=== PATIENT | male | born 1960 | race Caucasian/White ===

== ENCOUNTER 2016-12-10 15:07 | Emergency (ER) | payer OTHER ==
[2016-12-10] MEDS ORDERED: Sodium Chloride 0.9% 10 ML Syringe FLUSH PRN (15:24)
--- NOTE | 2016-12-10 16:25 | EDM.PDOC ---
ED HPI GENERAL MEDICAL PROBLEM - General Chief Complaint: Chest Pain Stated Complaint: CHEST PAIN Time Seen by Provider: 12/10/16 15:19 Source of Information: Reports: Patient History Limitations: Reports: No Limitations - History of Present Illness INITIAL COMMENTS - FREE TEXT/NARRATIVE: The patient presents with right sided chest pain. This started a few days ago. It radiates up into her right shoulder at times. The pain is made worse by movement and when exhaling. 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 She has no fever, chills, cough or congestion. She has no shortness of breath. She notices it more when she exhales. She was nauseated yesterday. She has no coronary artery disease. Onset: Gradual Duration: Day(s): (2) Location: Reports: Chest Quality: Reports: Sharp Severity: Moderate Improves with: Reports: Immobilization Worsens with: Reports: Breathing Associated Symptoms: Reports: Chest Pain. Denies: Cough, Fever/Chills, Headaches, Nausea/Vomiting, Shortness of Breath Treatments ELECTRICAL MECHANIC: Reports: Other (see below) Other Treatments ELECTRICAL MECHANIC: none Right Chest Pain Score (Numeric/FACES): 5 - Related Data Allergies Allergy/AdvReac Type Severity Reaction Status Date / Time No Known Allergies Allergy Verified 12/10/16 15:20 Past Medical History Cardiovascular History: Reports: High Cholesterol, Hypertension Respiratory History: Reports: Pneumonia, Recurrent Gastrointestinal History: Reports: GERD Genitourinary History: Reports: Other (See Below) Other Genitourinary History: has left kidney; born with out right kidney Musculoskeletal History: Reports: Arthritis, Back Pain, Chronic, Other (See Below) Other Musculoskeletal History: bursitis to hips Psychiatric History: Reports: Anxiety, Depression Endocrine/Metabolic History: Reports: Diabetes, Type II - Past Surgical History Other Cardiovascular Surgeries/Procedures: open heart surgery 2 different time as a young child due to congential issues. Social & Family History - Tobacco Use Smoking Status *Q: Never Smoker - Caffeine Use Caffeine Use: Reports: Coffee, Soda - Recreational Drug Use Recreational Drug Use: No ED ROS GENERAL - Review of Systems Review Of Systems: See Below Constitutional: Reports: No Symptoms HEENT: Reports: No Symptoms Respiratory: Reports: No Symptoms Cardiovascular: Reports: Chest Pain Endocrine: Reports: No Symptoms GI/Abdominal: Reports: No Symptoms : Reports: No Symptoms Musculoskeletal: Reports: No Symptoms ED EXAM, GENERAL - Physical Exam Exam: See Below Exam Limited By: No Limitations General Appearance: Alert, No Apparent Distress Ears: Normal External Exam Nose: Normal Inspection Head: Atraumatic, Normocephalic Neck: Normal Inspection Respiratory/Chest: No Respiratory Distress, Lungs Clear, Normal Breath Sounds Cardiovascular: Regular Rate, Rhythm, No Edema, No Murmur GI/Abdominal: Soft, Non-Tender, No Organomegaly, No Mass Back Exam: Normal Inspection Extremities: Normal Inspection Neurological: Alert, Oriented, No Motor/Sensory Deficits EKG INTERPRETATION EKG Date: 12/10/16 Time: 15:22 Rhythm: NSR Rate (Beats/Min): 82 [place]: Normal P-Wave: Present QRS: Normal ST-T: Normal QT: Normal Course - Vital Signs Last Recorded V/S: Last Vital Signs Temp 98.1 F 12/10/16 15:16 Pulse 93 12/10/16 15:16 Resp 23 H 12/10/16 15:16 BP 162/71 H 12/10/16 15:16 Pulse Ox 97 12/10/16 15:16 - Orders/Labs/Meds Orders: Active Orders 24 hr Category Date Time Status Cardiac Monitoring [RC] . DIRECTED Care 12/10/16 15:24 Active EKG Documentation Completion [RC] ASDIRECTED Care 12/10/16 15:15 Active Peripheral IV Care [RC] . DIRECTED Care 12/10/16 15:25 Active Chest 1V Frontal [CR] Stat Exams 12/10/16 15:25 Taken Sodium Chloride 0.9% [Saline Flush] Med 12/10/16 15:24 Active 10 ml FLUSH ASDIRECTED PRN Peripheral IV Insertion Adult [OM.PC] Stat Oth 12/10/16 15:24 Ordered EKG 12 Lead [EK] Stat Ther 12/10/16 15:15 Ordered Medication Orders Sodium Chloride (Saline Flush) 10 ml FLUSH ASDIRECTED PRN PRN Reason: Keep Vein Open Last Admin: 12/10/16 15:31 Dose: 10 ml Labs: Laboratory Tests 12/10/16 12/10/16 Range/Units 15:25 15:25 WBC 8.86 (4.23-9.07) K/mm3 RBC 4.79 (4.63-6.08) M/mm3 Hgb 14.4 (13.7-17.5) gm/L Hct 41.9 (40.1-51.0) % MCV 87.5 (79.0-92.2) fl MCH 30.1 (25.7-32.2) pg MCHC 34.4 (32.2-35.5) g/dl RDW Std Deviation 41.4 (35.1-43.9) fL Plt Count 287 (163-337) K/mm3 MPV 9.9 (9.4-12.3) fl Neut % (Auto) 56.4 (34.0-67.9) % Lymph % (Auto) 32.7 (21.8-53.1) % [place] % (Auto) 8.5 (5.3-12.2) % Eos % (Auto) 1.6 (0.8-7.0) Baso % (Auto) 0.6 (0.1-1.2) % Neut # (Auto) 5.00 (1.78-5.38) K/mm3 Lymph # (Auto) 2.90 (1.32-3.57) K/mm3 [place] # (Auto) 0.75 (0.30-0.82) K/mm3 Eos # (Auto) 0.14 (0.04-0.54) K/mm3 Baso # (Auto) 0.05 (0.01-0.08) K/mm3 Sodium 142 (136-145) mEq/L Potassium 4.1 (3.5-5.1) mEq/L Chloride 103 (98-107) mEq/L Carbon Dioxide 27 (21-32) mEq/L Anion Gap 16.1 H (5-15) BUN 20 H (7-18) mg/dL Creatinine 0.9 (0.7-1.3) mg/dL Est Cr Clr Drug Dosing 66.36 mL/min Estimated GFR (MDRD) > 60 (>60) mL/min BUN/Creatinine Ratio 22.2 H (14-18) Glucose 138 H (74-106) mg/dL Calcium 10.0 (8.5-10.1) mg/dL Total Bilirubin 0.3 (0.2-1.0) mg/dL AST 31 (15-37) U/L ALT 54 (16-63) U/L Alkaline Phosphatase 70 (46-116) U/L Troponin I < 0.017 (0.00-0.056) ng/mL Total Protein 8.1 (6.4-8.2) g/dl Albumin 4.3 (3.4-5.0) g/dl Globulin 3.8 gm/dL Albumin/Globulin Ratio 1.1 (1-2) Meds: Medications Generic Name Dose Route Start Last Admin Trade Name Freq PRN Reason Stop Dose Admin Sodium Chloride 10 ml 12/10/16 15:24 12/10/16 15:31 Saline Flush FLUSH 10 ml ASDIRECTED PRN Administration Keep Vein Open - Re-Assessments/Exams Free Text/Narrative Re-Assessment/Exam: 12/10/16 16:26 I ordered an EKG, CXR, and labs. She did not want anything for pain at this time. She says she has had flair up of connective tissue pain before. Her EKG shows a NSR with no acute changes. Her CXR looks good. He CBC and CMP look good. Her troponin is negative. This appears to be costochondritis. I will discharge her home. Departure - Departure Time of Disposition: 16:30 Disposition: Home, Self-Care 01 Condition: Good Clinical Impression: Costochondritis Referrals: Kristine Goldsmith DO [Primary Care Provider] - 1 Week Additional Instructions: Take some advil or aleve as needed for pain. Follow up with your doctor next week. Please return if you are worse. - My Orders Last 24 Hours: My Active Orders 12/10/16 15:15 EKG Documentation Completion [RC] ASDIRECTED EKG 12 Lead [EK] Stat 12/10/16 15:24 Cardiac Monitoring [RC] . DIRECTED Sodium Chloride 0.9% [Saline Flush] 10 ml FLUSH ASDIRECTED PRN Peripheral IV Insertion Adult [OM.PC] Stat 12/10/16 15:25 Peripheral IV Care [RC] . DIRECTED Chest 1V Frontal [CR] Stat - Assessment/Plan Last 24 Hours: My Active Orders 12/10/16 15:15 EKG Documentation Completion [RC] ASDIRECTED EKG 12 Lead [EK] Stat 12/10/16 15:24 Cardiac Monitoring [RC] . DIRECTED Sodium Chloride 0.9% [Saline Flush] 10 ml FLUSH ASDIRECTED PRN Peripheral IV Insertion Adult [OM.PC] Stat 12/10/16 15:25 Peripheral IV Care [RC] . DIRECTED Chest 1V Frontal [CR] Stat
--- NOTE | 2016-12-12 07:39 | CR ---
Chest: Portable view of the chest was obtained. Comparison: No prior chest x-ray. Heart size and mediastinum are within normal limits. Lungs are clear. Slight degenerative spurring is noted within the spine with minimal scoliosis. Impression: 1. Nothing acute is seen on portable chest x-ray. Diagnostic code #2
== END 2016-12-10 16:40 | disposition home or self-care (01) ==
LOC: EDSEX 15:07 → JD.ED 15:07
DX: M94.0 Chondrocostal junction syndrome [Tietze] (principal); E11.9 Type 2 diabetes mellitus without complications; I10 Essential (primary) hypertension
CPT/HCPCS: 36415; 71010; 80053; 84484; 85025; 93005; 99285; J7050; 93010; 99284

== ENCOUNTER 2017-06-14 11:22 | Emergency (ER) | payer OTHER ==
--- NOTE | 2017-06-14 13:27 | EDM.PDOC ---
ED HPI GENERAL MEDICAL PROBLEM - General Chief Complaint: Chest Pain Stated Complaint: PULLED MUSCLE IN CHEST Time Seen by Provider: 06/14/17 12:01 Source of Information: Reports: Patient, RN Notes Reviewed - History of Present Illness INITIAL COMMENTS - FREE TEXT/NARRATIVE: 56 year old female with L chest pain for about 1 week, achy pain L ant chest worse with certain types of motion, occasionally worse with deep breath. Present most of the time. No cough, fever, chills or dyspnea. No known injury other than lifting grandkids. 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 Hx Htn, type 2 diabetes. Does not smoke. Chest Pain Score (Numeric/FACES): 5 - Related Data Allergies Allergy/AdvReac Type Severity Reaction Status Date / Time ondansetron [From Zofran] Allergy Vomiting Verified 06/14/17 11:32 Home Meds: Home Meds Lisinopril 20 mg PO DAILY 06/14/17 [History] Multivitamin [Multivitamins] 1 tab PO DAILY 06/14/17 [History] Pantoprazole Sodium [Protonix] 20 mg PO DAILY 06/14/17 [History] SitaGLIPtin [Januvia] 25 mg PO DAILY 06/14/17 [History] atorvaSTATin [Lipitor] 10 mg PO DAILY 06/14/17 [History] Past Medical History Cardiovascular History: Reports: High Cholesterol, Hypertension Respiratory History: Reports: Pneumonia, Recurrent Gastrointestinal History: Reports: GERD Genitourinary History: Reports: Other (See Below) Other Genitourinary History: has left kidney; born with out right kidney Musculoskeletal History: Reports: Arthritis, Back Pain, Chronic, Other (See Below) Other Musculoskeletal History: bursitis to hips Psychiatric History: Reports: Anxiety, Depression Endocrine/Metabolic History: Reports: Diabetes, Type II - Past Surgical History Other Cardiovascular Surgeries/Procedures: open heart surgery 2 different time as a young child due to congential issues. Social & Family History - Tobacco Use Smoking Status *Q: Never Smoker - Caffeine Use Caffeine Use: Reports: Coffee - Recreational Drug Use Recreational Drug Use: No ED ROS GENERAL - Review of Systems Review Of Systems: See Below Constitutional: Denies: Fever, Chills, Diaphoresis HEENT: Reports: No Symptoms Respiratory: Denies: Shortness of Breath, Wheezing, Cough Cardiovascular: Reports: Chest Pain GI/Abdominal: Denies: Abdominal Pain, Nausea, Vomiting Musculoskeletal: Denies: Neck Pain, Shoulder Pain, Arm Pain, Back Pain Skin: Reports: No Symptoms Neurological: Reports: No Symptoms ED EXAM, GENERAL - Physical Exam Exam: See Below General Appearance: Alert, No Apparent Distress Throat/Mouth: Normal Inspection, Normal Oropharynx Head: Atraumatic. No: Facial Swelling Neck: Supple, Full Range of Motion Respiratory/Chest: No Respiratory Distress, Lungs Clear, Normal Breath Sounds Cardiovascular: Regular Rate, Rhythm GI/Abdominal: Soft, Non-Tender Back Exam: No: CVA Tenderness (L), CVA Tenderness (R) Extremities: Normal Inspection, Normal Range of Motion. No: Pedal Edema, Leg Pain Neurological: Alert, Oriented, No Motor/Sensory Deficits Skin Exam: Warm, Dry, Normal Color EKG INTERPRETATION EKG Date: 06/14/17 Rhythm: NSR [place]: Normal P-Wave: Present QRS: Normal ST-T: Normal Course - Vital Signs Last Recorded V/S: Last Vital Signs Temp 98.2 F 06/14/17 11:28 Pulse 63 06/14/17 11:28 Resp 16 06/14/17 11:28 BP 179/74 H 06/14/17 11:28 Pulse Ox 100 06/14/17 11:28 - Orders/Labs/Meds Orders: Active Orders 24 hr Category Date Time Status Chest 1V Frontal [CR] Stat Exams 06/14/17 12:12 Taken Labs: Laboratory Tests 06/14/17 06/14/17 Range/Units 13:25 13:25 WBC 6.98 (3.98-10.04) K/mm3 RBC 4.62 (3.98-5.22) M/mm3 Hgb 13.9 (11.2-15.7) gm/L Hct 40.5 (34.1-44.9) % MCV 87.7 (79.4-94.8) fl MCH 30.1 (25.6-32.2) pg MCHC 34.3 (32.2-35.5) g/dl RDW Std Deviation 40.7 (36.4-46.3) fL Plt Count 251 (182-369) K/mm3 MPV 10.4 (9.4-12.3) fl Neut % (Auto) 61.1 (34.0-71.1) % Lymph % (Auto) 29.7 (19.3-51.7) % [place] % (Auto) 7.4 (4.7-12.5) % Eos % (Auto) 1.1 (0.7-5.8) Baso % (Auto) 0.6 (0.1-1.2) % Neut # (Auto) 4.26 (1.56-6.13) K/mm3 Lymph # (Auto) 2.07 (1.18-3.74) K/mm3 [place] # (Auto) 0.52 H (0.24-0.36) K/mm3 Eos # (Auto) 0.08 (0.04-0.36) K/mm3 Baso # (Auto) 0.04 (0.01-0.08) K/mm3 Troponin I < 0.017 (0.00-0.056) ng/mL - Re-Assessments/Exams Free Text/Narrative Re-Assessment/Exam: 06/14/17 15:35 EKG, CXR, trop, CBC all normal. Sinus rythm, no ectopy. Departure - Departure Time of Disposition: 14:53 Disposition: Home, Self-Care 01 Condition: Fair Clinical Impression: Atypical chest pain, Chest wall pain Instructions: Chest Wall Pain, [id number] Referrals: Karen Jarrell MD [Primary Care Provider] - Forms: ED Department Discharge Additional Instructions: advil 600 mg 3 times daily for 2 days and than 400 mg 2 to 3 times daily until pain is gone, follow up clinic if not much better within 3 to 4 days as expected. Return to ED as needed if symptoms worsening in any way. - My Orders Last 24 Hours: My Active Orders 06/14/17 12:12 Chest 1V Frontal [CR] Stat - Assessment/Plan Last 24 Hours: My Active Orders 06/14/17 12:12 Chest 1V Frontal [CR] Stat
--- NOTE | 2017-06-15 10:20 | CR ---
Chest: Frontal view of the chest was obtained. Comparison: Prior chest x-ray of 12/10/16. Heart size at the upper limits of normal. Upper mediastinum is normal. Lungs are clear with no acute parenchymal densities. Bony structures are grossly intact. Impression: 1. Nothing acute is seen on one-view chest x-ray. Diagnostic code #1
== END 2017-06-14 15:00 | disposition home or self-care (01) ==
LOC: JD.ED 11:22
DX: R07.89 Other chest pain (principal); E11.9 Type 2 diabetes mellitus without complications; K21.9 Gastro-esophageal reflux disease without esophagitis; Z79.899 Other long term (current) drug therapy; Z88.8 Allergy status to other drugs, medicaments and biological substances
CPT/HCPCS: 36415; 71045; 71045-26; 84484; 85025; 93010; 99284-25; 99285

== ENCOUNTER 2017-07-17 22:25 | Emergency (ER) | payer OTHER ==
[2017-07-17] MEDS ORDERED: Sodium Chloride 0.9% 10 ML Syringe FLUSH PRN (22:45)
[2017-07-17] MEDS ORDERED: Ketorolac 30 MG/ML SDV IVPUSH ONE (22:47)
[2017-07-17] MEDS ORDERED: HYDROmorphone 0.5 MG/0.5 ML SYRINGE IVPUSH ONE (22:47)
--- NOTE | 2017-07-17 22:54 | EDM.PDOC ---
ED HPI GENERAL MEDICAL PROBLEM - General Chief Complaint: Chest Pain Stated Complaint: poss injury to chest Time Seen by Provider: 07/17/17 22:33 Source of Information: Reports: Patient History Limitations: Reports: No Limitations - History of Present Illness INITIAL COMMENTS - FREE TEXT/NARRATIVE: The patient presents with left sided chest pain. She says this has been going on for a few months. She was seen here in June and she got a little better after that. She just got back from camping and was putting things away and she developed severe left chest pain with movement. She feels a little short of breath with it but mostly because she it hurts to take a deep breath. She has a history of coarctation of the aorta. She had surgery twice as a child. She has no fever, chills, cough, congestion, runny nose, abdominal pain, nausea or vomiting. She has no history of coronary artery disease. She does not smoke. She has no history of DVT or PE. Onset: Gradual Duration: Week(s): Location: Reports: Chest Quality: Reports: Sharp Severity: Severe Improves with: Reports: Immobilization Worsens with: Reports: Movement Context: Reports: Activity (She was putting supplies away from camping and that made it worse tonight) Associated Symptoms: Reports: Chest Pain, Shortness of Breath. Denies: Cough, Fever/Chills, Headaches, Nausea/Vomiting Left Chest Pain Score (Numeric/FACES): 10 - Related Data Allergies Allergy/AdvReac Type Severity Reaction Status Date / Time ondansetron [From Zofran] Allergy Vomiting Verified 07/17/17 22:33 Home Meds: Home Meds Lisinopril 20 mg PO DAILY 06/14/17 [History] Multivitamin [Multivitamins] 1 tab PO DAILY 06/14/17 [History] Pantoprazole Sodium [Protonix] 20 mg PO DAILY 06/14/17 [History] SitaGLIPtin [Januvia] 25 mg PO DAILY 06/14/17 [History] atorvaSTATin [Lipitor] 10 mg PO DAILY 06/14/17 [History] Past Medical History Cardiovascular History: Reports: High Cholesterol, Hypertension Respiratory History: Reports: Pneumonia, Recurrent Gastrointestinal History: Reports: GERD Genitourinary History: Reports: Other (See Below) Other Genitourinary History: has left kidney; born with out right kidney Musculoskeletal History: Reports: Arthritis, Back Pain, Chronic, Other (See Below) Other Musculoskeletal History: bursitis to hips Psychiatric History: Reports: Anxiety, Depression Endocrine/Metabolic History: Reports: Diabetes, Type II - Past Surgical History Other Cardiovascular Surgeries/Procedures: open heart surgery 2 different time as a young child due to congential issues. Social & Family History - Tobacco Use Smoking Status *Q: Never Smoker - Caffeine Use Caffeine Use: Reports: Coffee - Recreational Drug Use Recreational Drug Use: No ED ROS GENERAL - Review of Systems Review Of Systems: See Below Constitutional: Reports: No Symptoms HEENT: Reports: No Symptoms Respiratory: Reports: Shortness of Breath Cardiovascular: Reports: Chest Pain Endocrine: Reports: No Symptoms GI/Abdominal: Reports: No Symptoms : Reports: No Symptoms Musculoskeletal: Reports: No Symptoms ED EXAM, GENERAL - Physical Exam Exam: See Below Exam Limited By: No Limitations General Appearance: Alert, No Apparent Distress Ears: Normal External Exam Nose: Normal Inspection Head: Atraumatic, Normocephalic Neck: Normal Inspection Respiratory/Chest: No Respiratory Distress, Lungs Clear, Normal Breath Sounds Cardiovascular: Regular Rate, Rhythm, No Edema, No Murmur, Other (Pain upon palpation and with movement to the left chest) GI/Abdominal: Soft, Non-Tender, No Organomegaly, No Mass Back Exam: Normal Inspection Extremities: Normal Inspection Neurological: Alert, Oriented, No Motor/Sensory Deficits EKG INTERPRETATION EKG Date: 07/17/17 Time: 10:40 Rhythm: NSR Rate (Beats/Min): 72 [place]: Normal P-Wave: Present QRS: Normal ST-T: Normal QT: Normal Course - Vital Signs Last Recorded V/S: Last Vital Signs Temp 98.0 F 07/17/17 22:34 Pulse 81 07/17/17 22:34 Resp 17 07/17/17 22:34 BP 191/89 H 07/17/17 22:34 Pulse Ox 97 07/17/17 22:34 - Orders/Labs/Meds Orders: Active Orders 24 hr Category Date Time Status Cardiac Monitoring [RC] . DIRECTED Care 07/17/17 22:45 Active EKG Documentation Completion [RC] STAT Care 07/17/17 22:46 Active Peripheral IV Care [RC] . DIRECTED Care 07/17/17 22:46 Active Ang Chest [CT] Stat Exams 07/17/17 22:46 Taken Sodium Chloride 0.9% [Saline Flush] Med 07/17/17 22:45 Active 10 ml FLUSH ASDIRECTED PRN Peripheral IV Insertion Adult [OM.PC] Stat Oth 07/17/17 22:45 Ordered Medication Orders Sodium Chloride (Saline Flush) 10 ml FLUSH ASDIRECTED PRN PRN Reason: Keep Vein Open Last Admin: 07/17/17 23:02 Dose: 10 ml Labs: Laboratory Tests 07/17/17 07/17/17 Range/Units 22:58 22:58 WBC 8.33 (3.98-10.04) K/mm3 RBC 4.46 (3.98-5.22) M/mm3 Hgb 13.3 (11.2-15.7) gm/L Hct 39.2 (34.1-44.9) % MCV 87.9 (79.4-94.8) fl MCH 29.8 (25.6-32.2) pg MCHC 33.9 (32.2-35.5) g/dl RDW Std Deviation 41.0 (36.4-46.3) fL Plt Count 261 (182-369) K/mm3 MPV 10.3 (9.4-12.3) fl Neut % (Auto) 53.9 (34.0-71.1) % Lymph % (Auto) 35.2 (19.3-51.7) % [place] % (Auto) 8.0 (4.7-12.5) % Eos % (Auto) 2.2 (0.7-5.8) Baso % (Auto) 0.6 (0.1-1.2) % Neut # (Auto) 4.49 (1.56-6.13) K/mm3 Lymph # (Auto) 2.93 (1.18-3.74) K/mm3 [place] # (Auto) 0.67 H (0.24-0.36) K/mm3 Eos # (Auto) 0.18 (0.04-0.36) K/mm3 Baso # (Auto) 0.05 (0.01-0.08) K/mm3 Sodium 146 H (136-145) mEq/L Potassium 3.8 (3.5-5.1) mEq/L Chloride 109 H (98-107) mEq/L Carbon Dioxide 26 (21-32) mEq/L Anion Gap 14.8 (5-15) BUN 18 (7-18) mg/dL Creatinine 1.0 (0.55-1.02) mg/dL Est Cr Clr Drug Dosing 46.19 mL/min Estimated GFR (MDRD) 58 (>60) mL/min BUN/Creatinine Ratio 18.0 (14-18) Glucose 222 H (74-106) mg/dL Calcium 9.3 (8.5-10.1) mg/dL Total Bilirubin 0.3 (0.2-1.0) mg/dL AST 21 (15-37) U/L ALT 38 (14-59) U/L Alkaline Phosphatase 68 (46-116) U/L Troponin I < 0.017 (0.00-0.056) ng/mL Total Protein 7.4 (6.4-8.2) g/dl Albumin 3.8 (3.4-5.0) g/dl Globulin 3.6 gm/dL Albumin/Globulin Ratio 1.1 (1-2) Meds: Medications Generic Name Dose Route Start Last Admin Trade Name Fredavid PRN Reason Stop Dose Admin Sodium Chloride 10 ml 07/17/17 22:45 07/17/17 23:02 Saline Flush FLUSH 10 ml ASDIRECTED PRN Administration Keep Vein Open Discontinued Medications Generic Name Dose Route Start Last Admin Trade Name Freq PRN Reason Stop Dose Admin Hydromorphone HCl 0.5 mg 07/17/17 22:47 07/17/17 23:02 Dilaudid IVPUSH 07/17/17 22:48 0.5 mg ONETIME ONE Administration Ketorolac Tromethamine 30 mg 07/17/17 22:47 07/17/17 23:05 Toradol IVPUSH 07/17/17 22:48 30 mg ONETIME ONE Administration - Re-Assessments/Exams Free Text/Narrative Re-Assessment/Exam: 07/17/17 22:58 I ordered an IV saline lock, EKG, CT angio of her chest, labs, toradol 30mg IV, and dilaudid 0.5mg IV. Her EKG shows a NSR with no acute changes. 07/18/17 01:03 Her CBC looks good. Her Na was elevated at 146. Her glucose was elevated at 222. Her troponin was negative. She says her blood sugars have been elevated. She did eat some pizza and drink some Pepsi before arrival. She will have that rechecked by her provider. Her CT shows no evidence of PE. No acute thoracic findings. Nonvisualized left kidney which may be absent, markedly atrophic or low lying. Small right renal collecting system stone. Fatty infiltration of the liver. She feels better. I do not see a PE or scar tissue. I recommend she see a applied anthropologist. I will refer her to [place]. Departure - Departure Time of Disposition: 01:10 Disposition: Home, Self-Care 01 Condition: Good Clinical Impression: Chest wall pain, Hyperglycemia Referrals: Karen Jarrell MD [Primary Care Provider] - Forms: ED Department Discharge Additional Instructions: Take motrin or aleve for the pain. If that does not help try the hydrocodone. Do not drive while taking the hydrocodone. Follow up with [facility]. Call [phone]. Have your blood sugar checked again or a hemoglobin A1C. Please return if you are worse. - My Orders Last 24 Hours: My Active Orders 07/17/17 22:45 Cardiac Monitoring [RC] . DIRECTED Sodium Chloride 0.9% [Saline Flush] 10 ml FLUSH ASDIRECTED PRN Peripheral IV Insertion Adult [OM.PC] Stat 07/17/17 22:46 EKG Documentation Completion [RC] STAT Peripheral IV Care [RC] . DIRECTED Ang Chest [CT] Stat - Assessment/Plan Last 24 Hours: My Active Orders 07/17/17 22:45 Cardiac Monitoring [RC] . DIRECTED Sodium Chloride 0.9% [Saline Flush] 10 ml FLUSH ASDIRECTED PRN Peripheral IV Insertion Adult [OM.PC] Stat 07/17/17 22:46 EKG Documentation Completion [RC] STAT Peripheral IV Care [RC] . DIRECTED Ang Chest [CT] Stat
--- NOTE | 2017-07-18 08:45 | CT ---
CT chest Technique: Multiple axial sections were obtained from above the lung apices inferiorly through the lung bases. Intravenous contrast was utilized. Study has been performed as a pulmonary angiogram protocol. Findings: Pulmonary arteries are well-opacified. No filling defects are seen to indicate pulmonary embolism. Mediastinum and hilar regions show no adenopathy or mass. No pericardial thickening is seen. Left kidney not visualized in normal position within the left upper abdomen. Incidental calcification is seen within the mid to upper right kidney. Small subpleural nodule is identified within the right lung base measuring 4.4 mm. This appears to be calcified and due to granuloma. Slight deformity is seen within several left-sided ribs compatible with old trauma. Degenerative endplate spurring is noted within the spine. Impression: 1. No findings of pulmonary embolism. 2. Other incidental findings as noted above. Nothing acute is appreciated. Diagnostic code #2 I agree with preliminary report issued by [facility] ([facility] preliminary report dictated on 07/18/17, 1:28 AM Central Time)
== END 2017-07-18 01:17 | disposition home or self-care (01) ==
LOC: JD.ED 22:25
DX: R07.89 Other chest pain (principal); E11.65 Type 2 diabetes mellitus with hyperglycemia; I10 Essential (primary) hypertension; Z79.899 Other long term (current) drug therapy
CPT/HCPCS: 36415; 71275; 80053; 84484; 85025; 93005; 96374; 96375; 99285; J1170; J1885; J7050; 93010; 99284-25

== ENCOUNTER 2020-07-03 21:31 | Emergency (ER) | payer OTHER ==
[2020-07-03] MEDS ORDERED: HYDROmorphone 0.5 MG/0.5 ML Syringe IM ONE (21:44)
--- NOTE | 2020-07-03 21:48 | EDM.PDOC ---
ED HPI GENERAL MEDICAL PROBLEM - General Chief Complaint: Lower Extremity Injury/Pain Stated Complaint: ankle injury Time Seen by Provider: 07/03/20 21:39 Source of Information: Reports: Patient, RN Notes Reviewed History Limitations: Reports: No Limitations - History of Present Illness INITIAL COMMENTS - FREE TEXT/NARRATIVE: Patient is a 59-year-old female who presents to the ER for a left foot and ankle injury. The patient notes she was trying to help her daughter, get her children to the daughter's car earlier tonight, and was rushing down the stairs, when she must have missed a step, and ended up falling down 2-3 stairs. She notes that she tried to stand on her left foot directly after this, but had quite a bit of pain and she is not been able to bear weight on this since then. She is not complaining of any sort of numbness or tingling distal to the injury, but she states it does provide extra pain to dorsiflex her foot. She is not having any pain more proximal to the injury like in the knee or the hip. She did not feel dizzy or lightheaded prior to the injury. Patient denies any other sick-like symptoms, fever/chills, cough/shortness of breath, nausea/vomiting/diarrhea. - Related Data Allergies Allergy/AdvReac Type Severity Reaction Status Date / Time metformin Allergy Cannot Verified 07/03/20 21:47 Remember ondansetron [From Zofran] Allergy Vomiting Verified 07/17/17 22:33 pneumococcal vaccine Allergy Cannot Verified 07/03/20 21:47 Remember Home Meds: Home Meds Lisinopril 20 mg PO DAILY 06/14/17 [History] Multivitamin [Multivitamins] 1 tab PO DAILY 06/14/17 [History] Pantoprazole Sodium [Protonix] 20 mg PO DAILY 06/14/17 [History] SitaGLIPtin [Januvia] 25 mg PO DAILY 06/14/17 [History] atorvaSTATin [Lipitor] 10 mg PO DAILY 06/14/17 [History] Past Medical History Cardiovascular History: Reports: High Cholesterol, Hypertension Respiratory History: Reports: Pneumonia, Recurrent Gastrointestinal History: Reports: GERD Genitourinary History: Reports: Other (See Below) Other Genitourinary History: has left kidney; born with out right kidney Musculoskeletal History: Reports: Arthritis, Back Pain, Chronic, Other (See Below) Other Musculoskeletal History: bursitis to hips Psychiatric History: Reports: Anxiety, Depression Endocrine/Metabolic History: Reports: Diabetes, Type II - Past Surgical History Other Cardiovascular Surgeries/Procedures: open heart surgery 2 different time as a young child due to congential issues. Social & Family History - Caffeine Use Caffeine Use: Reports: Coffee Review of Systems - Review of Systems Review Of Systems: Comprehensive ROS is negative, except as noted in HPI. ED EXAM, GENERAL - Physical Exam Exam: See Below Exam Limited By: No Limitations General Appearance: Alert, WD/WN, No Apparent Distress Respiratory/Chest: No Respiratory Distress, Lungs Clear, Normal Breath Sounds, No Accessory Muscle Use, Chest Non-Tender Cardiovascular: Normal Peripheral Pulses, Regular Rate, Rhythm, No Edema Peripheral Pulses: 2+: Radial (L), Radial (R), Dorsalis Pedis (L), Dorsalis Pedis (R) Extremities: Normal Capillary Refill, Limited Range of Motion (of left foot/ankle d/t pain) Neurological: Alert, Oriented, Normal Cognition, No Motor/Sensory Deficits Psychiatric: Normal Affect, Normal Mood Skin Exam: Warm, Dry, Intact, Normal Color, No Rash Course - Vital Signs Last Recorded V/S: Last Vital Signs Temp 98.0 F 07/03/20 21:42 Pulse 84 07/03/20 21:42 Resp 18 07/03/20 21:42 BP 171/87 H 07/03/20 21:42 Pulse Ox 96 07/03/20 21:42 - Orders/Labs/Meds Orders: Active Orders 24 hr Category Date Time Status Ankle Min 3V Lt [CR] Stat Exams 07/03/20 21:45 Ordered Foot Comp Min 3V Lt [CR] Stat Exams 07/03/20 21:45 Ordered Meds: Medications Discontinued Medications Generic Name Dose Route Start Last Admin Trade Name Freq PRN Reason Stop Dose Admin Hydromorphone HCl 0.5 mg 07/03/20 21:44 07/03/20 21:59 Hydromorphone 0.5 Mg/0.5 Ml Syringe IM 07/03/20 21:45 0.5 mg ONETIME ONE Administration - Re-Assessments/Exams Free Text/Narrative Re-Assessment/Exam: 07/03/20 21:47 Patient presents to the ER for evaluation of her left foot/ankle injury, we will go ahead and get x-rays, give her 1mg of IM Dilaudid for pain management. 07/03/20 22:25 X-rays demonstrate no obvious fracture or abnormality of her foot, and ankle films reviewed by myself. Nonetheless patient is not able to bear much weight on this, so we will place her in a walking boot and give her crutches to keep her nonweightbearing. Walking boot will be given to stabilize and prevent further injury to the ankle joint/left foot. 07/03/20 22:51 V rad demonstrates no acute fracture or other bony abnormalities of the foot and/or ankle joint. Nonetheless patient is not able to bear weight on the extremity we will go ahead and discharge her with the above plan. Departure - Departure Time of Disposition: 22:52 Disposition: Home, Self-Care 01 Condition: Good Clinical Impression: Injury of left foot Qualifiers: Encounter type: initial encounter Qualified Code(s): S99.922A - Unspecified injury of left foot, initial encounter Moderate left ankle sprain Qualifiers: Encounter type: initial encounter Qualified Code(s): S93.402A - Sprain of unspecified ligament of left ankle, initial encounter - Discharge Information *PRESCRIPTION DRUG MONITORING PROGRAM REVIEWED*: Yes *COPY OF PRESCRIPTION DRUG MONITORING REPORT IN PATIENT BIB: No Instructions: Ankle Sprain, [id number] Referrals: Karen Jarrell MD [Primary Care Provider] - Forms: ED Department Discharge Additional Instructions: You have been evaluated in the ED for your left foot/ankle injury. Your x-ray demonstrated no acute fracture or other bony injury however you were not able to bear weight on the extremity much at all without a lot of pain. You have been placed in a walking boot and have been given crutches. The walking boot has been given to you to help stabilize your left ankle joint and prevent further injury to your left ankle. The crutches have been given to you for non- weightbearing purposes. Please use ice as tolerated to the affected area. Please try to elevate the affected area to relieve swelling. You may take Tylenol 500 mg or ibuprofen 600mg q6 hrs for pain relief. Please do so until you have a tolerable level of pain with activity. Do not exceed 4000mg Tylenol or 3200mg ibuprofen in a 24 hour time period. You were given a prescription for a strong pain medication, oxycodone/acetaminophen 5/325 mg, please take 1 tab every 6 hours as needed for pain not relieved by Tylenol or ibuprofen alone. Please note this medication does contain Tylenol in it, so do not take more than 4000 mg in a 24-hour time span. These medications can be addictive, so please take as few as possible to achieve adequate pain control. These meds can also be quite constipating, recommend that you increase your oral fluid intake and take a stool softener li ke MiraLAX while taking these medications. Do not drive while taking this medication. This medication was electronically sent to the [place] [facility] located in the [facility] grocery store. Please return to ED if your symptoms should change or worsen. Sepsis Event Note (ED) - Evaluation Sepsis Screening Result: No Definite Risk - Focused Exam Vital Signs: Vital Signs Temp Pulse Resp BP Pulse Ox 07/03/20 21:42 98.0 F 84 18 171/87 H 96 - My Orders Last 24 Hours: My Active Orders 07/03/20 21:45 Ankle Min 3V Lt [CR] Stat Foot Comp Min 3V Lt [CR] Stat - Assessment/Plan Last 24 Hours: My Active Orders 07/03/20 21:45 Ankle Min 3V Lt [CR] Stat Foot Comp Min 3V Lt [CR] Stat
--- NOTE | 2020-07-04 06:53 | CR ---
Left foot: 3 views of the left foot were obtained. Comparison: No prior foot Imaging is available. Joint space narrowing and slight osteophytes are seen within the first MTP joint. Small plantar spur is seen as well as small spur noted at the attachment of the Achilles tendon to the calcaneus. No fracture or subluxation is seen. Impression: 1. Degenerative change within the first MTP joint. 2. Small calcaneal spurs. 3. Nothing acute is seen. Diagnostic code #2 I agree with preliminary report from [facility] finalized on 07/03/20, 11:47 PM CDT, code 1
--- NOTE | 2020-07-04 06:54 | CR ---
Left ankle: 3 views of the left ankle were obtained. Comparison: No prior left ankle study is available. Ankle mortise is symmetric. No acute fracture, dislocation or other bony abnormality is appreciated. Impression: 1. Nothing acute is identified on 3 view left ankle exam. Diagnostic code #1 I agree with preliminary report from [facility] finalized on 07/03/20, 11:45 PM CDT, code 1
== END 2020-07-03 23:11 | disposition home or self-care (01) ==
LOC: JD.ED 21:31
DX: S93.402A Sprain of unspecified ligament of left ankle, initial encounter (principal); E78.00 Pure hypercholesterolemia, unspecified; I10 Essential (primary) hypertension; K21.9 Gastro-esophageal reflux disease without esophagitis; E11.9 Type 2 diabetes mellitus without complications; Z79.899 Other long term (current) drug therapy; Z88.7 Allergy status to serum and vaccine; Z88.8 Allergy status to other drugs, medicaments and biological substances; W10.9XXA Fall (on) (from) unspecified stairs and steps, initial encounter
CPT/HCPCS: 73610; 73630; 96372; 99283; J1170

== ENCOUNTER 2023-04-27 06:30 | Day surgery (SDC) | payer OTHER ==
[~2023-04-27 06:30] MED LIST: Lactated Ringers 1,000 ML IV SCH; Sodium Chloride 0.9% 10 ML Syringe FLUSH PRN; Sodium Chloride 0.9% 10 ML Syringe FLUSH SCH
[2023-04-27] MEDS ORDERED: Midazolam 1 MG/ML 2 ML SDV ONE (06:33)
[2023-04-27] MEDS ORDERED: fentaNYL 100 MCG/2 ML SDV ONE (06:33)
[2023-04-27] MEDS ORDERED: Propofol 200 MG/20 ML SDV ONE (06:34)
[2023-04-27] MEDS: Lactated Ringers 1,000 ML IV SCH (06:45)
[2023-04-27] MEDS ORDERED: HYDROmorphone 0.5 MG/0.5 ML Syringe IVPUSH PRN (06:58)
[2023-04-27] MEDS ORDERED: fentaNYL 100 MCG/2 ML SDV IVPUSH PRN (06:58)
[2023-04-27] MEDS ORDERED: Ondansetron 4 MG/2 ML SDV IVPUSH PRN (06:58)
[2023-04-27] MEDS ORDERED: Lidocaine 1% 10 ML MDV ONE (07:28)
[2023-04-27] MEDS ORDERED: ceFAZolin 2 GM Vial ONE (08:02)
[2023-04-27] MEDS: Bupivacaine 0.25% 10 ML SDV ONE (08:30)
== END 2023-04-27 10:50 | disposition home or self-care (01) ==
LOC: JD.SDS 06:30
PROVIDERS: ATTEND Orthopaedic Surgery
DX: G56.02 Carpal tunnel syndrome, left upper limb (principal); I10 Essential (primary) hypertension; E78.5 Hyperlipidemia, unspecified; K21.9 Gastro-esophageal reflux disease without esophagitis; E11.9 Type 2 diabetes mellitus without complications; Z88.2 Allergy status to sulfonamides; Z79.899 Other long term (current) drug therapy; Z88.8 Allergy status to other drugs, medicaments and biological substances
CPT/HCPCS: 64721; 82947; J0690; J2250; J2704; J3010; J3490; J7120

== ENCOUNTER 2025-01-15 18:07 | Emergency (ER) | payer BC, OTHER | END 2025-01-15 20:30 | disposition home or self-care (01) | LOC: JD.ED 18:07 | DX: S09.8XXA Other specified injuries of head, initial encounter (principal); I10 Essential (primary) hypertension; E11.9 Type 2 diabetes mellitus without complications; E78.00 Pure hypercholesterolemia, unspecified; Z88.8 Allergy status to other drugs, medicaments and biological substances; Z79.82 Long term (current) use of aspirin; Z79.899 Other long term (current) drug therapy; W00.0XXA Fall on same level due to ice and snow, initial encounter | CPT/HCPCS: 70450; 70450-26; 72125; 72125-26; 731102650; 73110-50; 99283; 99284 ==